=== PATIENT | male | born 1990 | race Caucasian/White ===

== ENCOUNTER 2019-03-27 16:25 | Emergency (ER) | payer OTHER, SELFPAY ==
--- NOTE | 2019-03-27 16:26 | ED.GENADUL_ITS ---
Discharge Plan Disposition Patient Disposition: HOME Condition: Stable Discharge Details Chief Complaint: PsychEval Clinical Impression: Suicidal ideation, Alcohol intoxication Primary Care Provider: [place],Local ED Provider: Jcarlos Olivarez Home Meds and New Rx's Prescriptions: No Action No Known Home Meds RF: 0 Discharge Instructions Instructions: Depression (ED), Alcohol Intoxication (ED), Suicide Prevention for Adults (ED) Additional Instructions: You have agreed to an outpatient plan of safety including moving back in with her parents, attending AA meetings, reinitiating care with your psychiatrist. Please follow-up with [facility] human services. Return to the emergency department for any acute concern. Stand Alone Forms: Work Release Discharge Data Discharge Date/Time-TO BE ENTERED AT DEPARTURE: 03/28/19 13:44 Medical Decision Making <Garcia Tenorio DO - Last Filed: 03/28/19 09:48> This is a 28-year-old male who presents for suicidal ideations and suicidal attempt. Earlier today the patient tried to take his life by hanging himself however the rope broke and he was unable to. Over the last 36 hours he has been making increasing comments to his family about wanting to end his life, and behavior that would certainly represent self-harm. He is brought in by police. He has been drinking tonight. Currently the patient is notably guarded, does not answer any questions. He did reluctantly allow exam but he has been very difficult to help complete a normal interaction. No signs of significant respiratory distress. Heart rate on auscultation is 75, respirations are 16, blood pressure was stable before he ripped the cuff off. The patient's history is notably concerning, with an attempted suicide he is clearly a threat to himself and has both attempted self-harm and is at risk for self-harm. Laboratory work-up does demonstrate evidence of an elevated alcohol level, UDS is otherwise benign. Patient is medically cleared aside for his mild intoxication. He does appear clinically sober to me though. We did discuss the case with mental health, as well as case management. A safety plan has been put in place. One-to-one observation has been made, because of his alcohol level mental health is not able to do a formal assessment until the morning when he has completely sobered with an alcohol of 0. An EE form will be filed, however the case will be signed out to my colleague Dr. Fletcher for continued observation throughout the night with suspected signout in the morning to the oncoming physician for mental health reassessment and placement options. <Marc Fletcher MD - Last Filed: 03/28/19 20:03> Patient has been calm and cooperative overnight without issues. He did ask for more Ativan to help with the anxiety of being here and in a small room. He has otherwise been fine. Mental health to reevaluate in the morning. Patient signed over to Dr. Olivarez. <Jcarlos Olivarez MD - Last Filed: 03/28/19 12:01> 20-year-old male signed out to me by Dr. Fletcher who would take care of the patient overnight. Clinically sober, engaged with staff, interviewed over hours time in the morning of March 28 by [facility] human services. The previous paperwork was declined by the state as the patient was intoxicated. Patient now has agreed to an outpatient plan of safety, declines referral for admission, does not not meet criteria for 72-hour hold. The patient has agreed to move back with parents, he will attend AA meetings, and has agreed to reinitiating Psychiatric outpatient care, that has been arranged by mother. Patient to be released into care of mother. HPI <Garcia Tenorio DO - Last Filed: 03/28/19 09:48> General Date/Time Provider Initiated Documentation: 03/27/19 16:26 . HPI Narrative: This is a 28-year-old male from [place] who presents today for suicidal ideations and attempt. Per family, police and mental health the patient attempted to end his life today by hanging himself. The rope broke and he was unable to be successful. Family notes that over the last 36 hours he has been sending concerning text messages, making statements stating that he wants to end his life, and drinking a lot more alcohol than normal. He is a chronic alcoholic at baseline. The patient is notably guarded and reserved, and does not want to share any additional information at this time. He makes no complaints. He was brought in by police, but is not in their custody. Currently the patient denies any auditory visual hallucinations. He will not answer questions in regard to suicidal ideations. He does state that he wants to kill the police that brought him in here but he says this off the cuff, and states he does not want to take anyone's life. Patient has no other complaints at this time. History is notably limited secondary to patient noncompliance and lack of interaction. Related Data Home Medications Medication Instructions Recorded Confirmed Unknown [No Known Home Meds] 03/27/19 03/27/19 Allergies Allergy/AdvReac Type Severity Reaction Status Date / Time No Known Allergies Allergy Unverified 03/27/19 16:47 Review of Systems <Garcia Tenorio DO - Last Filed: 03/28/19 09:48> Review of Systems All systems reviewed & are unremarkable except as noted in HPI and below PFSH <Garcia Tenorio DO - Last Filed: 03/28/19 09:48> Social History Smoking/Tobacco Use Status: Current every day Tobacco Type: cigarettes and e- cigarettes Alcohol Intake: current Alcohol Intake frequency: 3 or more drinks per day Alcohol type: beer and hard liquor Substance use type: prescription drug and unknown Do you feel safe at home: Yes Do you feel safe in your relationship?: Yes Exam <Garcia Tenorio DO - Last Filed: 03/28/19 09:48> Narrative Exam Narrative: 1.Const: Well-nourished, Well-developed, appearing stated age 2.Eyes: PERRL, no conjunctival injection, and symmetrical lids. 3.ENT: Atraumatic external nose and ears. Moist MM. Neck: Symmetric, trachea midline, No thyromegaly. 4.CVS: +S1/S2, No murmurs or gallops. Peripheral pulses 2+ and equal in all extremities. Brisk capillary refill in all extremities. 5.RESP: Unlabored respiratory effort. Clear to auscultation bilaterally. No wheezes rales or rhonchi 6.GI: Soft, Nontender/Nondistended, No hepatosplenomegaly. No guarding or rebound. 7.MSK: Normocephalic/Atraumatic, Extremities w/o deformity or ttp No cyanosis or clubbing, Normal movement of all extremities 8.Skin: Warm, Dry. No rashes or lesions. 9.Neuro: log brander II-XII grossly intact. Sensation grossly intact, no focal neurologic deficits. 10.Psych: (AAO) x3. Appropriate mood and affect Sign Out <Garcia Tenorio DO - Last Filed: 03/28/19 09:48> Sign Out Data: Sign Out Comment: Pending sobriety, and then reassessment by mental health in the morning. EE has been filled out, however may require new EE if requested by mental health secondary to timing. Patient is at a significant risk for self- harm. Last updated by Garcia Tenorio DO at 03/27/19 23:17 Sign Out Comment: Pending re-eval by mental health. Last updated by Marc Fletcher MD at 03/28/19 08:12
[2019-03-27 16:31] VITALS: RESP 16
--- NOTE | 2019-03-27 17:10 | CMPROGNOTE_ITS ---
Care Management Progress Note CM paged at 1700 from ED by the Chief Steward/Stewardess for Pt. under the care of Dr. Tenorio who is not medically cleared at this time. Chief Complaint: Chart review does not provide much information. This is the first admission for Jb. He is intoxicated and not a reliable historian at this time. Apparently he tried to hang himself at his mother's house. [facility] QMHP/[address] Court Administrator will not be able to complete the Psychiatric Evaluation until Jb has been medically cleared which could be several hours from now. Jb currently denies any intent to harm himself. Cooperative during staff interactions at this time. Neon Electrician will respond to ED to assess patient after patient has been medically cleared and assessed by screener. If screener deems patient meets criteria for psychiatric stabilization CM will facilitate interdepartmental huddle with [facility] screener for safety planning considerations and meet with rajani ent to review [facility] policy and safety plan, establish individual wishes for treatment and maintain patient rights. In the interim; please note safety plan below to guide patient care while awaiting further assessment in the ED. Huddle: To be scheduled when patient has been medically cleared and Psychiatric Evaluation can be completed. INTERIM SAFETY PLAN: 03/27/19 17:20 Room #5 BB 1. Will remain on suicide precautions and in paper clothes. 2. Will remain in room under direct Observation of one-on-one CPSO at all times provided by TIKI, BREAD PAN GREASER insurance coordinator. 3. May have paper cups, plates, finger foods and safety spoon with which to eat meals. 4. Follow [facility] Management of the Admitted Behavioral Health Patient policy. 5. Comfort bath system only. 6. No personal belongings 7. No visitors. 8. No phone 9. Staff escort to the bathroom. 10. To remain in the ED until medically cleared. 11. Transfer to M/S Transition bed will be coordinated through the [facility] pervisor based on clinical needs, staffing and bed availability. If deemed appropriate for inpatient psychiatric care, safety plan will be established with patient, and care team, to adhere to patient goals, identify restrictions based on behavioral status, address nutrition, and determine allowed personal belongings, tools for hygiene and personal care. As well plan will determine level of activity including ambulation, level of supervision, visitors, and determine privileges based on level of acuity, behaviors and level of engagement by patient.
--- NOTE | 2019-03-27 17:25 | PDOC.CMSAFED ---
Care Management Safety Plan Vaccine Manager will respond to ED to assess patient after patient has been medically cleared and assessed by screener. If screener deems patient meets criteria for psychiatric stabilization CM will facilitate interdepartmental huddle with [facility] screener for safety planning considerations and meet with patient to review [facility] policy and safety plan, establish individual wishes for treatment and maintain patient rights. In the interim; please note safety plan below to guide patient care while awaiting further assessment in the ED. Huddle: To be scheduled when patient has been medically cleared and Psychiatric Evaluation can be completed. INTERIM SAFETY PLAN: 03/27/19 17:20 Room #5 BB 1. Will remain on suicide precautions and in paper clothes. 2. Will remain in room under direct Observation of one-on-one CPSO at all times provided by TIKI, DICTATING TRANSCRIBING MACHINE SERVICER boiler repair supervisor. 3. May have paper cups, plates, finger foods and safety spoon with which to eat meals. 4. Follow [facility] Management of the Admitted Behavioral Health Patient policy. 5. Comfort bath system only. 6. No personal belongings 7. No visitors. 8. No phone 9. Staff escort to the bathroom. 10. To remain in the ED until medically cleared. 11. Transfer to M/S Transition bed will be coordinated through the Sign Painter based on clinical needs, staffing and bed availability. If deemed appropriate for inpatient psychiatric care, safety plan will be established with patient, and care team, to adhere to patient goals, identify restrictions based on behavioral status, address nutrition, and determine allowed personal belongings, tools for hygiene and personal care. As well plan will determine level of activity including ambulation, level of supervision, visitors, and determine privileges based on level of acuity, behaviors and level of engagement by patient.
[2019-03-27 17:44] LABS: Abs Immature Grans 0.02 k/cumm (0.0-0.09); Absolute Basophil Count 0.07 k/cumm (0.0-0.2); Absolute Eosinophil Count 0.08 k/cumm (0.0-0.7); Absolute Lymphocyte Count 1.78 k/cumm (1.2-3.4); Absolute Monocyte Count 0.48 k/cumm (0.11-0.7); Basophils % 1.3; Eosinophils % 1.5; HCT 51.4 % (40.0-50.0); HGB 18.1 g/dL (13.5-17.5); Immature Grans % 0.4; Lymphocytes % 32.8; Mean Corp. HGB Concentration 35.2 g/dL (32.0-36.0); Mean Corpuscular Hemoglobin 31.9 pg (27.0-33.0); Mean Corpuscular Volume 90.5 fL (80-95); Mean Platelet Volume 8.4 fL (8.0-11.0); Monocytes % 8.8; Neutrophils % 55.2; Platelet Count 353 x1000/uL (130-400); RBC 5.68 m/cumm (4.50-6.00); RBC Distribution Width 11.6 % (11.8-14.1); White Blood Cell Count 5.43 k/cumm (4.4-10.8)
[2019-03-27 18:05] LABS: Salicylate < 2.8 mg/dL (2.8-20.0)
[2019-03-27 18:09] LABS: TSH (W/Ref FT4) 1.13 uIU/mL (0.36-3.74)
[2019-03-27 18:11] LABS: Acetaminophen < 2 ug/mL (10-30)
[2019-03-27 18:23] LABS: ALT 100 U/L (12-78); AST 57 U/L (15-37); Albumin 4.4 g/dL (3.4-5.0); Alkaline Phosphatase 70 U/L (46-116); Anion Gap 14.9 mmol/L (3-11); BUN 4 mg/dL (7-18); Bilirubin, Total 0.2 mg/dL (0.2-1.0); CO2 25.1 mmol/L (21.0-32.0); CREATININE 0.91 mg/dL (0.70-1.30); Calcium 8.8 mg/dL (8.5-10.1); Chloride 101 mmol/L (98-107); Glucose 102 mg/dL (70-100); Potassium 3.8 mmol/L (3.5-5.1); Sodium 141 mmol/L (136-145); Total Protein 8.5 g/dL (6.4-8.2)
[2019-03-27 18:24] LABS: ETHANOL BLOOD 342.6 mg/dL (<3)
[2019-03-27] MEDS: LORazepam 1 MG TAB (19:08)
[2019-03-27] MEDS: Nicotine 21 MG/24 HR PATCH (19:08)
[2019-03-27 19:27] LABS: *AMPHETAMINES SCREEN URINE Negative (Negative); *BARBITURATES SCREEN URINE Negative (Negative); *BENZODIAZEPINES SCREEN URINE Negative (Negative); Cannabinoids THC Negative (Negative); Cocaine Screen,Urine Negative (Negative); METHADONE URINE SCREEN Negative (Negative); OPIATES URINE SCREEN Negative (Negative)
[2019-03-27 19:34] LABS: Tricyclic Antidepressants Negative (Negative)
--- NOTE | 2019-03-27 19:52 | NUR.NOTE ---
Nursing Note: The head field hockey coach came back into the ER to have him blow in the Breathalyzer. The results were 0.18.
--- NOTE | 2019-03-27 20:32 | CMPROGNOTE_ITS ---
Care Management Progress Note S/O: Jb presents to [facility] ED escorted by the police and was in handcuffs. Handcuffs were immediately removed and he was transferred from police protective custody to the clinical staff. He was intoxicated and not medically cleared for Psychiatric evaluation when he arrived at 16:30. LE reported that they had been called to the family home in [place] and Jb had attempted to commit suicide by hanging but the rope had broken. He was cooperative at that time and an Interim Safety Plan was created. Very little information was available when he first arrived. He became agitated and wanted to leave. Clinical staff de- escalated the situation and offered medication to help him relax. Jb accepted Ativan. Primary Nurse reports that she had just spoken to his mother and learned more about the situation. Jb lives with his parents in [place], [place]. They own a vacation home in [place] and Jb had traveled up here alone to clear his head. Mother has been worried and called every hour to check on him. When he did not answer her call she notified P and they went to the house for a safety check. Apparently he stated that he had tried to hang himself but the rope had broken. He did not want to leave the house so LE placed him in handcuffs under protective custody and transported him to the hospital. Madelin, Jb's mother, immediately left [place] and drove to [place]. She was at the hospital but did not go in to see him. She did talk to him on the phone and he became agitated. He is responding to verbal redirection and has not attempted to physically assault anyone at this point. Primary Nurse reports that he wants to go home and feels he has the right to do what he wants with his own life. Mother reports that he is an alcohlic and has a history of psychiatric illness. Stated he has been working up to an actual suicide attempt and it was just a matter of time. She could not verify that he was taking any medication at this time. Alcohol level is currently .18 [address] [facility] cannot evaluate for EE until there is no alcohol present in his system. Per , Jb is incapacitated due to alcohol intake and incapable of making a decision regarding Psychiatric hospitalization at this moment in time. Please see and notes for further information. INCAPACITATED: Jb is unpredictable in terms of his response at this time and cannot agree to remain in the hospital. Jb has agreed to take oral medication to help him calm down. Jb is a high elopement risk and is at risk for harming himself and possibly others. Safety plan has been established with patient (limited participation), and care team, to adhere to patient goals, identify restrictions based on behavioral status, address nutrition, and determine allowed personal belongings, tools for hygiene and personal care. Determine level of activity including ambulation, level of supervision, visitors, and determine privileges based on behaviors and level of engagement by patient; please note safety plan below. Huddle Participants: Ashleigh Lind, RN, Franny, Concrete Tester, Sherin [facility], JUAN De [facility]-[employer] Administrative Assistant SAFETY PLAN: ED Room #5 BB 03/27/19 22:00 1. Will remain on suicide precautions. In Paper Clothes. Note he did comment that he could hang himself using the pants. 2. Will remain in room under direct supervision of one-on-one staff at all times provided by CPSO; TIKI, RADIOLOGICAL EQUIPMENT SPECIALIST horseradish maker. 3. May have paper cups, plates, finger foods only. Nothing plastic. No plastic wrap or wrappers. All food must be out of the packaging and placed on the paper plate. 4. Follow [facility] Management of the Admitted Behavioral Health Patient policy. 5. Comfort bath system only. 6. No personal belongings in the room. 7. No visitors tonight. 9. Bathroom privileges: escort to bathroom at RN discretion. 10. May speak with mother on the phone if he is able to remain calm. Phone contact is at the discretion of nursing 11. Will remain in the ED. Concrete Tester will determine transfer to M/S Transition Bed based on clinical care requirements, bed availability and staffing. 12. Due to Incapacitated status, the patient must remain in the hospital and will be evaluated once alcohol level is 0. Patient is currently incapacitated at [facility] and has not been and ICP to the [facility]. He will be evaluated to determine if he is in need of inpatient psychiatric admission for stabilization when a bed becomes available. [facility] Frontline Rig Mechanic will seek placement if the need is determined following the Psychiatric Evaluation. Please contact the [facility] Administrative Assistant ([phone]) and [facility] Rig Mechanic ([phone]) for any needed changes in the Safety Plan. Safety plan has been provided to interdepartmental care team including Clinical Coordinator, Nursing Substation Inspector
--- NOTE | 2019-03-27 20:32 | NUR.NOTE ---
Nursing Note: This conventional mortgage underwriter had a conversation with patients mother after she presented here from [facility]. His mother reported that he came to [place] to get away from the city. She said that he had been having a rough patch at home with a superintendent terminal on again off again girlfriend. The mother stated that they both are alcohol dependent and are not good for each other. The mother said that her son has struggled for awhile with depression and has had many friends kill themselves or of heroin OD. Patient over his stay in the ER has voiced many times that the rope he was trying to hang himself with broke and that things would be better if he was . Jb asked for 8mg of Ativan from this conventional mortgage underwriter. Patient was told that that is way to much and it would be enough to take down an elephant, patient responded Yahh that is the point you know. Mom also reported that she saw no signs of a broken rope where he was staying but she said she is unsure where he might have tried. Mom reported also that this issue coming about was only a matter of time. She says she is worried about him and had been in contact with him every hour on the hour over the last few days because of things he had been saying.
--- NOTE | 2019-03-27 21:11 | PDOC.MHCN ---
Mental Health Crisis Note <Sherin Vasquez - Last Filed: 03/27/19 21:44> Presenting Issue How did you arrive at the ED and why did you come: Client arrived by [facility] because of intoxication and SI statements. Precipitating Factors Client was reported by his Jody Neves that the client attempted to hang himself but the rope he used broke. The client has recently had a break up and he suffers from alcohol abuse. Disposition BEHAVIOR: The client has had periods of hostile behavior especially when P was bringing him into the hospital. The client also has been cooperative with nursing staff. EYE CONTACT: His eye contact was intermittent at time <Marc Fletcher MD - Last Filed: 04/17/19 06:18> Signature Clinician's Name/Title: Mental Health note inadvertantly assigned to me for signature which is not required. <Jcarlos Olivarez MD - Last Filed: 03/28/19 11:54> Plan Please see medical decision making note from ER visit. Patient reevaluated throughout the morning hours of March 28 by [facility][1] human services.
--- NOTE | 2019-03-27 22:00 | NUR.NOTE ---
The patient removed his paper pants and threw them and he stated You really should get different pants, I could kill easily kill myself with these, I could tie them around my neck.
--- NOTE | 2019-03-27 22:17 | PDOC.CMSAFED ---
Care Management Safety Plan SAFETY PLAN: ED Room #5 BB 03/27/19 22:00 1. Will remain on suicide precautions. In Paper Clothes. Note he did comment that he could hang himself using the pants. 2. Will remain in room under direct supervision of one-on-one staff at all times provided by CPSO; TIKI, BUSINESS ANALYSIS ANALYST cadastral surveyor. 3. May have paper cups, plates, finger foods only. Nothing plastic. No plastic wrap or wrappers. All food must be out of the packaging and placed on the paper plate. 4. Follow [facility] Management of the Admitted Behavioral Health Patient policy. 5. Comfort bath system only. 6. No personal belongings in the room. 7. No visitors tonight. 9. Bathroom privileges: escort to bathroom at RN discretion. 10. May speak with mother on the phone if he is able to remain calm. Phone contact is at the discretion of nursing 11. Will remain in the ED. Apprenticeship Representative will determine transfer to M/S Transition Bed based on clinical care requirements, bed availability and staffing. 12. Due to Incapacitated status, the patient must remain in the hospital and will be evaluated once alcohol level is 0. Patient is currently incapacitated at [facility] and has not been and ICP to the half-way. He will be evaluated to determine if he is in need of inpatient psychiatric admission for stabilization when a bed becomes available. [facility] Frontline Outreach Assistant will seek placement if the need is determined following the Psychiatric Evaluation. Please contact the Evaporator Repairer Gore Stitcher ([phone]) and [facility] Outreach Assistant ([phone]) for any needed changes in the Safety Plan. Safety plan has been provided to interdepartmental care team including Clinical Coordinator, Nursing Director Of Compensation
[2019-03-27] MEDS: diphenhydrAMINE 25 MG CAP 50 MG PO (22:49)
[2019-03-27] MEDS: LORazepam 1 MG TAB PO (22:50)
[2019-03-27 23:04] VITALS: BP 147/93; PULSE 107; RESP 18; TEMP 36.9; O2SAT 98
--- NOTE | 2019-03-28 04:25 | NUR.NOTE ---
Nursing Note: Patient asking how much longer he will be here. This scribe explained that someone will be in later this morning from [facility] to assess him. Patient is okay with. Is appropriate and cooperative. Stated he was beginning to feel anxious. Obtained order for Lorazepam and patient took this willingly. Offered food/drink which he declined. CPSO at bedside. Will continue to monitor.
[2019-03-28] MEDS: LORazepam 1 MG TAB PO (04:27)
--- NOTE | 2019-03-28 07:28 | NUR.NOTE ---
Nursing Note: PT awake, alert, and oriented acting appropriately. Eating breakfast.
[2019-03-28 09:26] VITALS: BP 151/103; PULSE 103; RESP 16; TEMP 37.2; O2SAT 99
--- NOTE | 2019-03-28 11:34 | NUR.NOTE ---
Nursing Note: Raghu with MD ayala and [facility] Human Services. Plan is to DC Pt with a saftey plan in place for well-being check tomorrow.
--- NOTE | 2019-03-28 11:36 | NUR.NOTE ---
Nursing Note: Per [facility] and [facility] Services the EE that was performed on arrival is no valid due to intoxication. Per their Opinion the PT is now sober and an EE is not necessary. Pt is alert and oriented, thinking is clear. Plan is to DC with out patient follow up.
--- NOTE | 2019-03-28 12:01 | PDOC.MHCN ---
Date of service: 03/28/19 Time of Service: 12:01 Mental Health Crisis Note Presenting Issue How did you arrive at the ED and why did you come: Patient remains at [facility] awaiting a psych placement. He first came to the ED last evening via police after becoming highly intoxicated and making suicidal statements and was subsequently placed on involuntary status. Precipitating Factors Patient denies SI or HI today. He admits that he at times has dark thoughts but says he would not act on them. He acknowledges that alcohol is a problem for him and recognizes that he needs help. He states that yesterday he became stressed out at the thought of returning to [place], went to his grandparents' home and drank a large amount of whiskey and beer and made statements that caused people to become concerned about him. Today, he denies SI. Disposition BEHAVIOR: Cooperative and pleasant. EYE CONTACT: Good. MOOD: I am embarassed. AFFECT: Normal. APPETITE: Unknown. SLEEP(trouble falling/staying asleep: Unknown. Plan Patient is being taken off of EE status and is being discharged. He is agreeable to giving up his apartment and moving in with his parents. He will be attending AA meetings regularly. His mom is contacting his psychiatrist, Dr. Umana, and getting an appointment scheduled for the beginning of next week. Patient will also be setting up an appointment with a therapist in [place] where he resides. Signature Clinician's Name/Title: Dinora Bolton BA, [facility] Burn Crew Member
[2019-03-28 13:41] VITALS: BP 146/107; PULSE 96; RESP 16; TEMP 37.8; O2SAT 97
== END 2019-03-28 13:44 | disposition home or self-care (01) ==
PROVIDERS: Student in an Organized Health Care Education/Training Program; Emergency Provider Emergency Medicine; PCP Internal Medicine
DX: F10.229 Alcohol dependence with intoxication, unspecified (principal); F32.9 Major depressive disorder, single episode, unspecified; Y90.8 Blood alcohol level of 240 mg/100 ml or more; T14.91XA Suicide attempt, initial encounter; X83.8XXA Intentional self-harm by other specified means, initial encounter
CPT/HCPCS: 36415; 80053; 80307; 99285; 80320; 80329; 84443; 85025; 99284